=== PATIENT | female | born 1955 | race Caucasian/White ===

== ENCOUNTER 2021-10-01 09:44 | Outpatient (CLI) | payer MEDICARE, SELFPAY ==
--- NOTE | 2021-10-01 09:54 | USCV_ITS ---
aNty Flores Age: 66 Gender: F : 1955 Exam Date: 10/01/2021 10:32 Ordering Phys: Oleg Gunderson MD Technologist: Madeleine Ward [place]am Location[place] [facility] [place]: BLE PAIN AND SWELLING HISTORY: Lower extremity swelling. Lower extremity pain. PROCEDURES: Venous duplex imaging was performed in bilateral lower extremities. The following venous structures were evaluated: common femoral vein, profunda vein, proximal portion of the greater saphenous vein, superficial femoral vein, and the popliteal vein. Serial compression, augmentation maneuvers, and spectral Doppler flow evaluation were performed. FINDINGS: No evidence of DVT seen in any vessel visualized at this time. Examination was technically limited due to body habitus. CONCLUSIONS No evidence of right lower extremity DVT. No evidence of left lower extremity DVT. Right popliteal cyst 3.3 x 1.4 x 4.7cm Left popliteal cyst 3.7 x 1.9 x 2.9 cm Rich Rausch MD (Electronically Signed) Final Date: 01 October 2021 17:11 S
== END 2021-10-01 09:45 | disposition home or self-care (01) ==
LOC: US 09:46
PROVIDERS: PCP Family Medicine; Visit Provider Family Medicine
DX: M79.604 Pain in right leg (principal); M79.605 Pain in left leg; M79.89 Other specified soft tissue disorders; M71.22 Synovial cyst of popliteal space [Baker], left knee; M71.21 Synovial cyst of popliteal space [Baker], right knee
CPT/HCPCS: 93970

== ENCOUNTER 2021-10-22 07:11 | Outpatient (CLI) | payer MEDICARE, SELFPAY ==
--- NOTE | 2021-10-22 07:18 | US_ITS ---
WS: [id number] Complete ABDOMINAL ULTRASOUND HISTORY: Abdominal pain, elevated liver LFTs. COMPARISON: None available. Liver: 17.3 cm in length. Mildly enlarged liver. Surface of the liver is irregular. Significantly coa rse echotexture throughout the liver. No mass or bile duct dilatation. Monophasic portal vein wavefor m. Gallbladder: Normally distended with no gallstones, wall thickening or pericholecystic fluid. Gallbladder wall thickness: 0.2 cm. Pancreas: Normal size and echogenicity. CBD: 0.3 cm. Right kidney: 11.3 cm x 6.1 cm x 4.1 cm. No mass, cortical thickening or hydronephrosis. Left kidney: 9.5 cm x 4.4 cm x 3.8 cm. No mass, cortical thickening or hydronephrosis. Spleen: Spleen is mildly enlarged measuring 14.1 cm in length. Abdominal aorta and IVC are within normal limits. No ascites. US/US abdomen complete* [id number] IMPRESSION: 1. Abnormal liver. Most consistent with cirrhosis. 2. Negative gallbladder. 3. Mild splenomegaly.
== END 2021-10-22 07:12 | disposition home or self-care (01) ==
LOC: RAD 07:15
PROVIDERS: PCP Family Medicine; Visit Provider Family Medicine
DX: R10.9 Unspecified abdominal pain (principal); R74.8 Abnormal levels of other serum enzymes; R16.1 Splenomegaly, not elsewhere classified
CPT/HCPCS: 76700

== ENCOUNTER 2021-10-22 07:15 | Outpatient (CLI) | payer MEDICARE, SELFPAY ==
--- NOTE | 2021-10-22 07:42 | USCV_ITS ---
Naty Flores Age: 66 Gender: F : 1955 Exam Date: 10/22/2021 07:38 Ordering Phys: Oleg Gunderson MD Technologist: Exam Location: 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 Normal resting ABIs bilaterally Normal resting TBIs bilaterally PVR waveforms appears to be blunted bilaterally CONCLUSIONS No evidence of any significant arterial obstruction, based on the above findings. The abnormal PVR waveforms most likely related to technical problems Dr Mark Forbes MD FACC (Electronically Signed) Final Date: 22 October 2021 19:56 S
== END 2021-10-22 07:16 | disposition home or self-care (01) ==
LOC: RAD 07:16
PROVIDERS: PCP Family Medicine; Visit Provider Family Medicine
DX: M79.604 Pain in right leg (principal); M79.605 Pain in left leg
CPT/HCPCS: 93923

== ENCOUNTER 2021-10-28 08:44 | Outpatient (CLI) | payer MEDICARE, SELFPAY ==
--- NOTE | 2021-10-28 08:52 | MM_ITS ---
WS: [id number] BILATERAL SCREENING DIGITAL MAMMOGRAM WITH CAD HISTORY: SCREENING COMPARISON: 10/28/2021, 04/26/2018 and 01/08/2015 Bilateral CC and MLO views submitted. Computer aided detection analyzed. Breast composition: There are scattered areas of fibroglandular density. No suspicious masses, microc alcifications or architectural distortion. Benign scattered calcifications in each breast. MM/[place] [id number] IMPRESSION: BI-RADS: 2-Benign FOLLOW UP: 1 Year Follow-up
== END 2021-10-28 08:45 | disposition home or self-care (01) ==
LOC: RADSHAW 08:48
PROVIDERS: PCP Family Medicine; Visit Provider Family Medicine
DX: Z12.31 Encounter for screening mammogram for malignant neoplasm of breast (principal)
CPT/HCPCS: 77067

== ENCOUNTER 2021-11-28 17:12 | Outpatient (CLI) | payer MEDICARE, SELFPAY | END 2021-11-28 17:13 | disposition home or self-care (01) | LOC: LAB 17:17 | PROVIDERS: PCP Family Medicine; Visit Provider Family Medicine | DX: L03.119 Cellulitis of unspecified part of limb (principal); Z20.822 Contact with and (suspected) exposure to COVID-19 | CPT/HCPCS: 36415; 87040; 87635 ==

== ENCOUNTER 2021-12-04 07:42 | Day surgery (SDC) | payer MEDICARE, SELFPAY ==
[2021-12-02 10:38] VITALS: BMI 56.7
--- NOTE | 2021-12-04 08:00 | ANES.PREANE2 ---
Pre-Anesthetic Assessment Pre-Anesthetic Assessment: Height/Weight: Height 1.55 m Weight 136.078 kg Proposed Procedure: Operation Date: 12/04/21 09:00 Proposed Procedures p Colonoscopy 97845 Z86.010(Not Applicable) - Ra Alexander MD Was Beta Emilio taken within 24 hours: N/A Was Clonidine taken within 24 hours: N/A Social: Social History: No alcohol and No tobacco Exam: Pre-Anes Outpt Exam: alert, oriented x 3, clear to auscultation bilaterally and regular rate & rhythm Airway: Submandibular: WNL Cervical ROM: WNL MP: 2 Dentition: Loose Additional comments: Lower arch missing several, some loose CV/HEM: CV/HEM: HTN Metabolic: Metabolic: DM, Hyperlipidemia, Morbid obesity and Thyroid Musc/skel: Musc/skel: Weakness Anesthetic Plan: ASA status: 3 Anesthesia: MAC Risk of > 500 ml blood loss (7ml/kg in children): No PFSH Anesthesia PFSH: Medical History (Updated 09/30/21 @ 09:12 by Ra Alexander MD) Diabetes mellitus Hypertension Hypothyroidism Osteoarthritis Surgical History (Updated 09/30/21 @ 09:12 by Ra Alexander MD) History of colonoscopy Hx of Colon Polyps History of hysterectomy History of left knee surgery Family History Other CAD (coronary artery disease) Diabetes Hypertension Stroke Social History Smoking and tobacco status: never smoked Data Anesthesia Cardiac Studies: No Data to Display
[2021-12-04 08:34] VITALS: BP 178/89; PULSE 92; RESP 16; TEMP 36.7; O2SAT 100
[2021-12-04] MEDS: sodium chloride 0.9% 1,000 ML 30 ML IV (08:39)
--- NOTE | 2021-12-04 09:24 | P.HP_ITS ---
Same Day Surgery H&P Indication for Procedure/HPI DATE OF PROCEDURE: December 04, 2021 CHIEF COMPLAINT/INDICATIONFOR SURGICAL PROCEDURE: screening colonoscopy PREOP DIAGNOSIS: diagnostic PLANNED PROCEDURE: Operation Date: 12/04/21 09:00 Proposed Procedures p Colonoscopy 97721 Z86.010(Not Applicable) - Ra Alexander MD Medications/Allergies* Home Medications Medication Instructions Recorded Confirmed Type amlodipine 5 mg tablet 5 mg PO DAILY 09/30/21 12/02/21 History atorvastatin 10 mg tablet 10 mg PO DAILY 09/30/21 12/02/21 History cinnamon bark 500 mg capsule 500 mg PO DAILY 09/30/21 12/02/21 History cyclobenzaprine 5 mg tablet 5 mg PO BID PRN tab 09/30/21 12/02/21 History dulaglutide 4.5 mg/0.5 mL 4.5 mg SUBCUT DIRECTED 09/30/21 12/02/21 History subcutaneous pen injector furosemide 20 mg tablet 20 mg PO DAILY 09/30/21 12/02/21 History gabapentin 300 mg capsule 300 mg PO TID 09/30/21 12/02/21 History hydrochlorothiazide 25 mg tablet 25 mg PO DAILY 09/30/21 12/02/21 History indomethacin 50 mg capsule 50 mg PO Q8H cap 09/30/21 12/02/21 History insulin lispro 100 unit/mL 26 unit SUBCUT TID ml 09/30/21 12/02/21 History subcutaneous half-unit pen levothyroxine 125 mcg tablet 125 mcg PO DAILY 09/30/21 12/02/21 History metformin 1,000 mg tablet 1,000 mg PO BID 09/30/21 12/02/21 History quinapril 20 mg tablet 20 mg PO BID 09/30/21 12/02/21 History Allergies/Adverse Reactions Allergy/AdvReac Type Severity Reaction Status Date / Time No Known Allergies Allergy Verified 12/04/21 08:25 Current Medications: Generic Name Dose Route Start Last Admin Trade Name Freq PRN Reason Stop Dose Admin Sodium Chloride 1,000 mls @ 30 mls/hr 12/04/21 08:30 12/04/21 08:39 Sodium Chloride 0.9% IV 12/05/21 08:29 30 mls/hr .Q24H TOO Administration Pertinent History/Comorbid Conditions* Medical History (Updated 09/30/21 @ 09:12 by Ra Alexander MD) Diabetes mellitus Hypertension Hypothyroidism Osteoarthritis Surgical History (Updated 09/30/21 @ 09:12 by Ra Alexander MD) History of colonoscopy Hx of Colon Polyps History of hysterectomy History of left knee surgery Family History (Updated 09/30/21 @ 09:00 by Azul Bellamy MA) Diabetes CAD (coronary artery disease) Hypertension Stroke Social History Smoking and tobacco status: never smoked Pertinent Exam Findings alert, oriented x 3 and regular rate & rhythm Recommendations Surgery/Procedure today Coding Level of Care Code Acute 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
[2021-12-04 09:53] VITALS: BP 125/69; PULSE 80; RESP 16; TEMP 36.4; O2SAT 97
[2021-12-04 10:11] VITALS: BP 151/71; PULSE 78; RESP 16; O2SAT 100
--- NOTE | 2021-12-04 14:09 | ANE.PACU2 ---
Inpatient post-anesthesia follow up: Airway intact: Yes Vital signs: Temperature 97.5 F Pulse Rate 78 Respiratory Rate 16 Blood Pressure 151/71 Pulse Oximetry 100 Oxygen Delivery Me thod Room Air Oxygen Flow Rate Fraction of Inspir ed Oxygen Hydration adequate: Yes Nausea and vomiting: No Pain level: 1 Mental status: Baseline
== END 2021-12-04 10:30 | disposition home or self-care (01) ==
PROVIDERS: PCP Family Medicine; Visit Provider Surgery
PROC: 0DJD8ZZ Inspection of Lower Intestinal Tract, Via Natural or Artificial Opening Endoscopic (ICD-10-PCS; CPT 45378; principal; 2021-12-04 09:00)
DX: Z12.11 Encounter for screening for malignant neoplasm of colon (principal); Z86.010 Personal history of colon polyps; Z85.038 Personal history of other malignant neoplasm of large intestine; K57.30 Diverticulosis of large intestine without perforation or abscess without bleeding; K63.5 Polyp of colon; K64.8 Other hemorrhoids; E11.9 Type 2 diabetes mellitus without complications; I10 Essential (primary) hypertension; E03.9 Hypothyroidism, unspecified; M19.90 Unspecified osteoarthritis, unspecified site; Z82.49 Family history of ischemic heart disease and other diseases of the circulatory system; Z83.3 Family history of diabetes mellitus; Z82.3 Family history of stroke
CPT/HCPCS: G0121; J2704; J7030

== ENCOUNTER 2022-04-09 08:17 | Outpatient (CLI) | payer MEDICARE, SELFPAY ==
--- NOTE | 2022-04-09 08:35 | US_ITS ---
WS: [id number] Complete ABDOMINAL ULTRASOUND HISTORY: ELEVATED LIVER ENZYMES COMPARISON: 10/22/2021 Liver: 20.4 cm in length. Enlarged liver with variable diffuse heterogeneity. Surface of the liver is irregular. As compared to the prior study there is been increase in scattered areas of variable dens ity and hypoechoic areas. No discrete mass identified. Portal Vein: Poorly visualized. The waveform is very flattened. Gallbladder: Normally distended with no gallstones, wall thickening or pericholecystic fluid. Gallbladder wall thickness: 0.2 cm. Pancreas: Poorly visualized. CBD: 0.4 cm. Right kidney: 11.7 cm x 4.2 cm x 5.3 cm. No mass, cortical thickening or hydronephrosis. Left kidney: 10.3 cm x 3.9 cm x 4.7 cm. No mass, cortical thickening or hydronephrosis. Spleen: Enlarged spleen extends over a length of 16.4 cm. Abdominal aorta and IVC are within normal limits. No ascites. US/US abdomen complete* [id number] IMPRESSION: 1. Difficult evaluation of the abdominal structures due to body habitus. 2. Enlarged very heterogeneous liver. No bile duct dilatation. Heterogeneity w ithin the liver has increased since the prior study. An infiltrating neoplasm v ersus metastatic lesions cannot be excluded on this appearance. Changes in the liver may all be related to cirrhosis or hepatic congestion. For further evalua tion of the liver consider follow-up CT abdomen and pelvis with IV and oral con trast. 3. Normal gallbladder. 4. Mildly flattened but not reversed portal vein waveform. 5. Enlarged spleen.
== END 2022-04-09 08:18 | disposition home or self-care (01) ==
PROVIDERS: PCP Family Medicine; Visit Provider Family Medicine
DX: R74.01 Elevation of levels of liver transaminase levels (principal); R16.2 Hepatomegaly with splenomegaly, not elsewhere classified
CPT/HCPCS: 76700

== ENCOUNTER 2022-06-09 06:25 | Outpatient (CLI) | payer MEDICARE, SELFPAY ==
--- NOTE | 2022-06-09 07:00 | CT_ITS ---
WS: [id number] CT ABDOMEN AND PELVIS WITH CONTRAST HISTORY: ABNORMAL LIVER ENZYMES/FATIGUE TECHNIQUE: Imaging performed of the abdomen and pelvis with IV contrast. Single phase imaging of the abdomen. Coronal and sagittal reformats are submitted. All CT scans at [facility] use at [facility] st one of these dose optimization techniques: automated exposure control; mA and/or kV adjustment per patient size (includes targeted exams where dose is matched to clinical indication); or iterative re construction. IV CONTRAST: Omnipaque 350; 95 mL IV. Oral contrast: Yes. DLP: 1565.43 mGy.cm COMPARISON: Ultrasound 04/09/2022 Lower thorax: Lung bases are clear. Heart is normal size. Small hiatal hernia. Liver/biliary system: Liver is enlarged. Surface of the liver is diffusely nodular. There is no mass or abnormal enhancement. Coarse echotexture due to hepatic steatosis or hepatocellular disease. No bi le duct dilatation. Gallbladder: Normally distended with cholelithiasis. No acute cholecystitis. Pancreas: Normal size pancreas and pancreatic duct. No adjacent inflammation. Spleen: Moderately enlarged spleen measuring 15 cm in length. Adrenal glands: Normal. Right kidney: Normal. Left kidney: Normal. Aorta: Mild atherosclerosis. No aneurysm. Mesenteric arteries are normally enhancing proximally. Lymphadenopathy: None. Free fluid: None. GI tract: Normally distended stomach and small bowel. Prior appendectomy. No significant diverticular disease. Abdominal wall: Mild soft tissue stranding. Abdominal wall probably from prior injection sites. Soft tissue thickening at the umbilicus may be due to prior surgery or edema. No acute finding. No abscess or mass. Pelvis: Prior hysterectomy. Urinary bladder is negative. No adenopathy or free fluid. Bones: No osteoblastic or osteolytic bone disease. CT/CT abdomen pelvis w con* [id number] IMPRESSION: 1. Hepatomegaly with no mass or abnormal enhancement within the liver. 2. Surface irregularity suggests cirrhosis. 3. Cholelithiasis without cholecystitis. 4. Small hiatal hernia. 5. Prior hysterectomy and appendectomy.
[2022-06-09 08:58] LABS: Blood Urea Nitrogen 21 mg/dL (8-23); Glomerular Filtration Rate 49.8 mL/min (90-130)
[2022-06-09] MEDS: barium sulfate 450 mL Oral Susp PO (10:20)
[2022-06-09] MEDS: iohexol 350 mg/mL 100 mL Btl IV (10:20)
== END 2022-06-09 06:26 | disposition home or self-care (01) ==
PROVIDERS: PCP Family Medicine; Visit Provider Family Medicine
DX: K76.89 Other specified diseases of liver (principal); R94.5 Abnormal results of liver function studies; R53.83 Other fatigue; R16.0 Hepatomegaly, not elsewhere classified; K80.20 Calculus of gallbladder without cholecystitis without obstruction; K44.9 Diaphragmatic hernia without obstruction or gangrene; Z90.710 Acquired absence of both cervix and uterus; Q42.8 Congenital absence, atresia and stenosis of other parts of large intestine
CPT/HCPCS: 74177; 82565; 84520

== ENCOUNTER 2023-03-02 08:18 | Outpatient (CLI) | payer MEDICARE, SELFPAY ==
--- NOTE | 2023-03-02 08:35 | MM_ITS ---
WS: [id number] Bilateral screening 3D tomosynthesis digital mammogram, 03/02/2023 Clinical Data: SCREENING Comparison: 10/28/2021, 04/26/2018, 01/08/2015. Findings: The breast parenchymal pattern shows fat replacement. No spiculated masses or clustered calcification s are seen. There are no secondary signs of carcinoma. There are mole markers in the right axilla. MM/[place] [id number] Impression: 1. Negative bilateral mammogram unchanged. 2. Recommend annual screening mammograms. BIRADS: 1-Negative FOLLOW UP: 1 Year Follow-up The CAD gas and oil checker was used.
== END 2023-03-02 08:19 | disposition home or self-care (01) ==
LOC: RAD 08:24
PROVIDERS: PCP Family Medicine; Visit Provider Family Medicine
DX: Z12.31 Encounter for screening mammogram for malignant neoplasm of breast (principal)
CPT/HCPCS: 77063; 77067

== ENCOUNTER 2024-10-14 10:18 | Outpatient (CLI) | payer MEDICARE, SELFPAY ==
--- NOTE | 2024-10-14 10:21 | MM_ITS ---
WS: [id number] BILATERAL SCREENING DIGITAL TOMOSYNTHESIS MAMMOGRAM WITH CAD HISTORY: SCREENING COMPARISON: 03/02/2023, 10/28/2021 Bilateral CC and MLO views with tomosynthesis and synthetic mammography submitted. Computer aided det ection analyzed. Breast composition: There are scattered areas of fibroglandular density. No suspicious masses, microc alcifications or architectural distortion. Benign calcifications in each breast. MM/MM scr BI tomosynthesis [id number] IMPRESSION: BI-RADS: 2 - Benign. FOLLOW UP: 1 Year Follow-up
== END 2024-10-14 10:19 | disposition home or self-care (01) ==
LOC: RAD 10:23
PROVIDERS: PCP Family Medicine; Visit Provider Family Medicine
DX: Z12.31 Encounter for screening mammogram for malignant neoplasm of breast (principal); R92.323 Mammographic fibroglandular density, bilateral breasts; R92.1 Mammographic calcification found on diagnostic imaging of breast
CPT/HCPCS: 77063; 77067